=== PATIENT | male | born 1970 | race Caucasian/White ===

== ENCOUNTER 2017-05-19 18:20 | Emergency (ER) | payer MEDICAID, OTHER ==
[~2017-05-19] VITALS: Ht 170.2 cm; Wt 75.0 kg
[2017-05-19 18:41] VITALS: Ht 170.2 cm; Wt 75.0 kg
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
[2017-05-19] MEDS ORDERED: HYDROCODONE/APAP (5/325) TAB PO ONE (21:30)
--- NOTE | 2017-05-19 22:35 | RADRPT ---
PROCEDURE: CT Brain without. CLINICAL INDICATION: Trauma, pain. TECHNIQUE: A CT of the brain was performed on multidetector high-resolution CT scanner utilizing a xial sections from the skull base through the vertex without contrast. The scan was reviewed in sof t tissue brain and high frequency resolution bone algorithm windows. Images were reviewed on a high -resolution PACS workstation. One or more the following does reduction techniques were utilized: Aut omated exposure control, adjustment of the mA/ or kV according to patient's size, or use of iterativ e reconstruction technique. The exam CTDI = 43.06 mGy and the DLP = 822.64 mGy-cm. COMPARISON: None available. FINDINGS: The ventricles and sulci are age-appropriate. There is no intracranial hemorrhage, mass effect or mi dline shift. No abnormal intra-axial or extra-axial fluid collections are seen. The rhodes/white earl er differentiation is preserved. No acute skull abnormality is noted. The visualized paranasal sinus es are essentially clear. IMPRESSION: 1. No acute intracranial hemorrhage, transcortical infarction or mass effect. RPTAT: HFN .Adrianne Montgomery MD, MD Date Time Electronically viewed and signed by .Adrianne Montgomery MD, MD on 05/19/2017 22:34 .N/
--- NOTE | 2017-05-19 22:36 | RADRPT ---
PROCEDURE: XR Shoulder. CLINICAL INDICATION: Right shoulder pain TECHNIQUE: Three views of the right shoulder are available for review. COMPARISON: None available FINDINGS: No acute fracture or dislocation is seen. No radiopaque foreign body is identified. The acromioclav icular and glenohumeral joints demonstrate minimal degenerative changes. The visualized portions of the right clavicle and upper right rib cage are equally unremarkable. IMPRESSION: 1. No acute fracture or dislocation is seen. 2. Minimal degenerative changes of the acromioclavicular and glenohumeral joints. RPTAT: HFN .Adrianne Montgomery MD, MD Date Time Electronically viewed and signed by .Adrianne Montgomery MD, MD on 05/19/2017 22:35 .N/
--- NOTE | 2017-05-19 22:37 | RADRPT ---
PROCEDURE: XR Ankle. CLINICAL INDICATION: Right ankle pain. TECHNIQUE: Three views of the right ankle were performed. COMPARISON: None. FINDINGS: No acute fracture or dislocation is seen. The ankle mortise is symmetric. No radiopaque foreign body is identified. No significant soft tissue swelling is noted. IMPRESSION: 1. No acute fracture or dislocation. RPTAT: HFN .Adrianne Montgomery MD, Date Time Electronically viewed and signed by .Adrianne Montgomery MD, MD on 05/19/2017 22:36 .N/
--- NOTE | 2017-05-19 22:39 | RADRPT ---
PROCEDURE: XR Foot. CLINICAL INDICATION: Right foot pain TECHNIQUE: Three views of the right foot are available for review. COMPARISON: None available FINDINGS: Acute mildly displaced fracture of the proximal third metatarsal and acute minimally displaced fract ure of the proximal second and fourth metatarsal are noted. Mild overlying soft tissue swelling is n oted. IMPRESSION: 1. Acute mildly displaced fracture of the proximal third metatarsal and acute minimally displaced f racture of the proximal second and fourth metatarsal are noted. Mild overlying soft tissue swelling. RPTAT: HFN .Adrianne Montgomery MD, MD Date Time Electronically viewed and signed by .Adrianne Montgomery MD, on 05/19/2017 22:39 .N/
[2017-05-19] MEDS ORDERED: HYDR-906 PO (22:54)
[2017-05-19] MEDS ORDERED: NAPR-260 PO (22:54)
[2017-05-19 23:22] VITALS: BP 127/89; PULSE 93; RESP 19; TEMP 97.6
== END 2017-05-19 23:22 | disposition home or self-care (01) ==
LOC: FTE 18:20
DX: S92.341A Displaced fracture of fourth metatarsal bone, right foot, initial encounter for closed fracture (principal); S92.331A Displaced fracture of third metatarsal bone, right foot, initial encounter for closed fracture; S92.321A Displaced fracture of second metatarsal bone, right foot, initial encounter for closed fracture; F17.210 Nicotine dependence, cigarettes, uncomplicated; R51 Headache; V13.4XXA Pedal cycle driver injured in collision with car, pick-up truck or van in traffic accident, initial encounter
CPT/HCPCS: 29515; 70450; 73030; 73610; 73630; Z7610